=== PATIENT | female | born 1980 | race Caucasian/White ===

== ENCOUNTER → 2017-09-24 | Outpatient (CLI) | payer BC ==
[~2017-09-24] MED LIST: DOCU100C37 PO; IBUP-1780 PO; OXYC-465 PO; PREN1TAB71 PO
== END ==
LOC: RAD 10:32
PROVIDERS: ATTEND Obstetrics & Gynecology
DX: Z12.31 Encounter for screening mammogram for malignant neoplasm of breast (principal)
CPT/HCPCS: 77067

== ENCOUNTER 2020-06-04 09:08 | Outpatient (RCR) | payer BC ==
[2020-03-12 09:38] LABS: BASOPHILS % (AUTO) 1 % (0-10); EOSINOPHILS # (AUTO) 0.3 10^3/uL (0.0-0.3); EOSINOPHILS % (AUTO) 5 % (0-10); HEMATOCRIT 34 % (35-52); LYMPHOCYTES # (AUTO) 1.8 X 10^3 (1.0-4.0); LYMPHOCYTES % (AUTO) 32 % (12-44); MEAN CORPUSCULAR HEMOGLOBIN 26 PG (25-34); MEAN CORPUSCULAR HGB CONC 32 G/DL (32-36); MEAN CORPUSCULAR VOLUME 79 FL (80-99); MONOCYTES # (AUTO) 0.7 X 10^3 (0.0-1.0); MONOCYTES % (AUTO) 13 % (0-12); NEUTROPHILS # (AUTO) 2.9 X 10^3 (1.8-7.8); NEUTROPHILS % (AUTO) 50 % (42-75); PLATELET COUNT 281 10^3/uL (130-400); WHITE BLOOD COUNT 5.7 10^3/uL (4.3-11.0)
[2020-03-12 10:05] LABS: ALANINE AMINOTRANSFERASE 10 U/L (0-55); ALBUMIN 3.8 GM/DL (3.2-4.5); ALKALINE PHOSPHATASE 55 U/L (40-136); BILIRUBIN,TOTAL 0.4 MG/DL (0.1-1.0); BUN/CREATININE RATIO 14; CALCIUM 8.7 MG/DL (8.5-10.1); CARBON DIOXIDE 23 MMOL/L (21-32); CHLORIDE 108 MMOL/L (98-107); CREATININE SERUM 0.69 MG/DL (0.60-1.30); GFR ESTIMATED > 60; GLUCOSE 97 MG/DL (70-105); MAGNESIUM 1.8 MG/DL (1.6-2.4); POTASSIUM 3.8 MMOL/L (3.6-5.0); SODIUM 137 MMOL/L (135-145); TOTAL PROTEIN 6.3 GM/DL (6.4-8.2)
[2020-03-25 10:02] LABS: BASOPHILS % (AUTO) 0 % (0-10); EOSINOPHILS # (AUTO) 0.3 10^3/uL (0.0-0.3); EOSINOPHILS % (AUTO) 4 % (0-10); HEMATOCRIT 34 % (35-52); HEMOGLOBIN 11.3 G/DL (11.5-16.0); LYMPHOCYTES # (AUTO) 1.7 X 10^3 (1.0-4.0); LYMPHOCYTES % (AUTO) 28 % (12-44); MEAN CORPUSCULAR HEMOGLOBIN 26 PG (25-34); MEAN CORPUSCULAR HGB CONC 33 G/DL (32-36); MEAN CORPUSCULAR VOLUME 78 FL (80-99); MEAN PLATELET VOLUME 9.8 FL (7.4-10.4); MONOCYTES # (AUTO) 0.9 X 10^3 (0.0-1.0); MONOCYTES % (AUTO) 14 % (0-12); NEUTROPHILS # (AUTO) 3.4 X 10^3 (1.8-7.8); NEUTROPHILS % (AUTO) 54 % (42-75); PLATELET COUNT 229 10^3/uL (130-400); WHITE BLOOD COUNT 6.3 10^3/uL (4.3-11.0)
[2020-03-25 10:19] LABS: ALANINE AMINOTRANSFERASE 23 U/L (0-55); ALKALINE PHOSPHATASE 65 U/L (40-136); BILIRUBIN,TOTAL 0.4 MG/DL (0.1-1.0); BUN/CREATININE RATIO 19; CALCIUM 8.9 MG/DL (8.5-10.1); CARBON DIOXIDE 23 MMOL/L (21-32); CHLORIDE 108 MMOL/L (98-107); CREATININE SERUM 0.73 MG/DL (0.60-1.30); GFR ESTIMATED > 60; GLUCOSE 95 MG/DL (70-105); MAGNESIUM 2.2 MG/DL (1.6-2.4); POTASSIUM 3.9 MMOL/L (3.6-5.0); SODIUM 138 MMOL/L (135-145); TOTAL PROTEIN 6.7 GM/DL (6.4-8.2)
[2020-04-08 09:32] LABS: BASOPHILS % (AUTO) 1 % (0-10); EOSINOPHILS # (AUTO) 0.3 10^3/uL (0.0-0.3); EOSINOPHILS % (AUTO) 4 % (0-10); HEMATOCRIT 34 % (35-52); HEMOGLOBIN 11.2 G/DL (11.5-16.0); LYMPHOCYTES % (AUTO) 32 % (12-44); MEAN CORPUSCULAR HEMOGLOBIN 26 PG (25-34); MEAN CORPUSCULAR HGB CONC 33 G/DL (32-36); MEAN CORPUSCULAR VOLUME 79 FL (80-99); MEAN PLATELET VOLUME 10.2 FL (7.4-10.4); MONOCYTES # (AUTO) 0.6 X 10^3 (0.0-1.0); MONOCYTES % (AUTO) 10 % (0-12); NEUTROPHILS # (AUTO) 3.2 X 10^3 (1.8-7.8); NEUTROPHILS % (AUTO) 53 % (42-75); PLATELET COUNT 235 10^3/uL (130-400); WHITE BLOOD COUNT 6.1 10^3/uL (4.3-11.0)
[2020-04-08 09:56] LABS: ALANINE AMINOTRANSFERASE 49 U/L (0-55); ALKALINE PHOSPHATASE 85 U/L (40-136); BILIRUBIN,TOTAL 0.3 MG/DL (0.1-1.0); BUN/CREATININE RATIO 16; CALCIUM 9.3 MG/DL (8.5-10.1); CARBON DIOXIDE 22 MMOL/L (21-32); CHLORIDE 107 MMOL/L (98-107); CREATININE SERUM 0.75 MG/DL (0.60-1.30); GFR ESTIMATED > 60; GLUCOSE 98 MG/DL (70-105); MAGNESIUM 1.6 MG/DL (1.6-2.4); POTASSIUM 3.7 MMOL/L (3.6-5.0); SODIUM 139 MMOL/L (135-145); TOTAL PROTEIN 6.8 GM/DL (6.4-8.2)
[2020-04-22 09:22] LABS: BASOPHILS % (AUTO) 0 % (0-10); EOSINOPHILS # (AUTO) 0.2 10^3/uL (0.0-0.3); EOSINOPHILS % (AUTO) 3 % (0-10); HEMATOCRIT 33 % (35-52); HEMOGLOBIN 10.7 G/DL (11.5-16.0); LYMPHOCYTES # (AUTO) 1.8 X 10^3 (1.0-4.0); LYMPHOCYTES % (AUTO) 24 % (12-44); MEAN CORPUSCULAR HEMOGLOBIN 26 PG (25-34); MEAN CORPUSCULAR HGB CONC 32 G/DL (32-36); MEAN CORPUSCULAR VOLUME 79 FL (80-99); MEAN PLATELET VOLUME 10.2 FL (7.4-10.4); MONOCYTES % (AUTO) 14 % (0-12); NEUTROPHILS # (AUTO) 4.5 X 10^3 (1.8-7.8); NEUTROPHILS % (AUTO) 59 % (42-75); PLATELET COUNT 189 10^3/uL (130-400); WHITE BLOOD COUNT 7.6 10^3/uL (4.3-11.0)
[2020-04-22 09:46] LABS: ALANINE AMINOTRANSFERASE 58 U/L (0-55); ALBUMIN 3.9 GM/DL (3.2-4.5); ALKALINE PHOSPHATASE 87 U/L (40-136); BILIRUBIN,TOTAL 0.3 MG/DL (0.1-1.0); BUN/CREATININE RATIO 20; CALCIUM 8.9 MG/DL (8.5-10.1); CARBON DIOXIDE 20 MMOL/L (21-32); CHLORIDE 111 MMOL/L (98-107); CREATININE SERUM 0.71 MG/DL (0.60-1.30); GFR ESTIMATED > 60; GLUCOSE 91 MG/DL (70-105); MAGNESIUM 1.8 MG/DL (1.6-2.4); POTASSIUM 3.9 MMOL/L (3.6-5.0); SODIUM 139 MMOL/L (135-145); TOTAL PROTEIN 6.8 GM/DL (6.4-8.2)
[2020-05-06 10:16] LABS: BASOPHILS % (AUTO) 1 % (0-10); EOSINOPHILS # (AUTO) 0.2 10^3/uL (0.0-0.3); EOSINOPHILS % (AUTO) 3 % (0-10); HEMATOCRIT 32 % (35-52); HEMOGLOBIN 10.5 G/DL (11.5-16.0); LYMPHOCYTES # (AUTO) 1.8 X 10^3 (1.0-4.0); LYMPHOCYTES % (AUTO) 31 % (12-44); MEAN CORPUSCULAR HEMOGLOBIN 26 PG (25-34); MEAN CORPUSCULAR HGB CONC 32 G/DL (32-36); MEAN CORPUSCULAR VOLUME 80 FL (80-99); MEAN PLATELET VOLUME 9.8 FL (7.4-10.4); MONOCYTES # (AUTO) 0.9 X 10^3 (0.0-1.0); MONOCYTES % (AUTO) 15 % (0-12); NEUTROPHILS % (AUTO) 51 % (42-75); PLATELET COUNT 252 10^3/uL (130-400); WHITE BLOOD COUNT 5.8 10^3/uL (4.3-11.0)
[2020-05-06 10:48] LABS: CARBON DIOXIDE 22 MMOL/L (21-32); CHLORIDE 109 MMOL/L (98-107); POTASSIUM 4.1 MMOL/L (3.6-5.0); SODIUM 138 MMOL/L (135-145)
[2020-05-06 10:49] LABS: ALANINE AMINOTRANSFERASE 53 U/L (0-55); ALKALINE PHOSPHATASE 95 U/L (40-136); BILIRUBIN,TOTAL 0.2 MG/DL (0.1-1.0); BUN/CREATININE RATIO 16; GFR ESTIMATED > 60; GLUCOSE 90 MG/DL (70-105); MAGNESIUM 1.7 MG/DL (1.6-2.4)
[2020-05-20 09:34] LABS: BASOPHILS % (AUTO) 0 % (0-10); EOSINOPHILS # (AUTO) 0.2 10^3/uL (0.0-0.3); EOSINOPHILS % (AUTO) 4 % (0-10); HEMATOCRIT 33 % (35-52); HEMOGLOBIN 10.7 G/DL (11.5-16.0); LYMPHOCYTES # (AUTO) 1.6 X 10^3 (1.0-4.0); LYMPHOCYTES % (AUTO) 29 % (12-44); MEAN CORPUSCULAR HEMOGLOBIN 26 PG (25-34); MEAN CORPUSCULAR HGB CONC 32 G/DL (32-36); MEAN CORPUSCULAR VOLUME 80 FL (80-99); MEAN PLATELET VOLUME 10.1 FL (7.4-10.4); MONOCYTES # (AUTO) 0.7 X 10^3 (0.0-1.0); MONOCYTES % (AUTO) 12 % (0-12); NEUTROPHILS % (AUTO) 55 % (42-75); PLATELET COUNT 181 10^3/uL (130-400); WHITE BLOOD COUNT 5.4 10^3/uL (4.3-11.0)
[2020-05-20 10:00] LABS: ALANINE AMINOTRANSFERASE 75 U/L (0-55); ALBUMIN 3.9 GM/DL (3.2-4.5); ALKALINE PHOSPHATASE 164 U/L (40-136); BILIRUBIN,TOTAL 0.3 MG/DL (0.1-1.0); BUN/CREATININE RATIO 16; CARBON DIOXIDE 20 MMOL/L (21-32); CHLORIDE 109 MMOL/L (98-107); CREATININE SERUM 0.68 MG/DL (0.60-1.30); GFR ESTIMATED > 60; GLUCOSE 112 MG/DL (70-105); MAGNESIUM 1.6 MG/DL (1.6-2.4); POTASSIUM 3.9 MMOL/L (3.6-5.0); SODIUM 138 MMOL/L (135-145); TOTAL PROTEIN 6.9 GM/DL (6.4-8.2)
[~2020-06-04] VITALS: Ht 175.3 cm; Wt 86.2 kg
[~2020-06-04 09:08] MED LIST changes: +ALTEPLASE 2 MG (CATHFLO) CANCER CENTER IV ONE; +ATROPINE INJ 0.4 MG/ML SDV (CANCER CENTER) INJ SCH; +D5W 500 ML IV (CANCER CTR) 500 ML IV SCH; +FLUOROURACIL IV SCH; +FOSAPREPITANT (CANCER CENTER) 150 MG in NS (IVPB) CANCER CENTER ONLY 150 ML IV SCH; +IRINOTECAN HCL 300 MG in D5W 250 ML IVPB (CANCER CTR) 250 ML IV SCH; +LEUCOVORIN CALCIUM 500 MG, LEUCOVORIN CALCIUM 200 MG, LEUCOVORIN CALCIUM 100 MG in D5W ... IV SCH; +LORazepam INJ 2 MG/ML VIAL CANCER CTR IV SCH; +LUSPATERCEPT AAMT SQ SCH; +MAGNESIUM SULFATE (CANCER CTR) 2 GM in NS (IVPB) CANCER CENTER 100 ML IV ONE; +NS IV SCH; +OXALIPLATIN 170 MG in D5W 250 ML IVPB (CANCER CTR) 250 ML IV SCH; -OXYC-465 PO; +OXYC-556 PO
[2020-06-04 09:24] LABS: BASOPHILS % (AUTO) 0 % (0-10); EOSINOPHILS # (AUTO) 0.1 10^3/uL (0.0-0.3); EOSINOPHILS % (AUTO) 3 % (0-10); HEMATOCRIT 35 % (35-52); LYMPHOCYTES # (AUTO) 1.5 X 10^3 (1.0-4.0); LYMPHOCYTES % (AUTO) 32 % (12-44); MEAN CORPUSCULAR HEMOGLOBIN 26 PG (25-34); MEAN CORPUSCULAR HGB CONC 32 G/DL (32-36); MEAN CORPUSCULAR VOLUME 81 FL (80-99); MEAN PLATELET VOLUME 10.2 FL (7.4-10.4); MONOCYTES # (AUTO) 0.6 X 10^3 (0.0-1.0); MONOCYTES % (AUTO) 13 % (0-12); NEUTROPHILS # (AUTO) 2.4 X 10^3 (1.8-7.8); NEUTROPHILS % (AUTO) 51 % (42-75); PLATELET COUNT 194 10^3/uL (130-400); WHITE BLOOD COUNT 4.7 10^3/uL (4.3-11.0)
[2020-06-04 09:44] LABS: ALANINE AMINOTRANSFERASE 111 U/L (0-55); ALBUMIN 4.1 GM/DL (3.2-4.5); ALKALINE PHOSPHATASE 191 U/L (40-136); BILIRUBIN,TOTAL 0.3 MG/DL (0.1-1.0); BUN/CREATININE RATIO 16; CALCIUM 9.3 MG/DL (8.5-10.1); CARBON DIOXIDE 24 MMOL/L (21-32); CHLORIDE 107 MMOL/L (98-107); CREATININE SERUM 0.77 MG/DL (0.60-1.30); GFR ESTIMATED > 60; GLUCOSE 115 MG/DL (70-105); MAGNESIUM 1.6 MG/DL (1.6-2.4); SODIUM 140 MMOL/L (135-145)
== END 2020-06-09 | disposition home or self-care (01) ==
LOC: ONC 09:08
PROVIDERS: ATTEND Internal Medicine Hematology & Oncology
DX: Z51.11 Encounter for antineoplastic chemotherapy (principal); C20 Malignant neoplasm of rectum
CPT/HCPCS: 36591; 36593; 80053; 82378; 83735; 85025; 96367; 96368; 96375; 96411; 96413; 96416; 96417; 99214

== ENCOUNTER 2020-08-09 08:24 | Outpatient (RCR) | payer BC ==
[2020-07-15 08:45] LABS: BASOPHILS % (AUTO) 1 % (0-10); EOSINOPHILS # (AUTO) 0.2 10^3/uL (0.0-0.3); EOSINOPHILS % (AUTO) 5 % (0-10); HEMATOCRIT 36 % (35-52); HEMOGLOBIN 11.7 g/dL (11.5-16.0); LYMPHOCYTES # (AUTO) 0.8 10^3/uL (1.0-4.0); LYMPHOCYTES % (AUTO) 21 % (12-44); MEAN CORPUSCULAR HEMOGLOBIN 28 pg (25-34); MEAN CORPUSCULAR HGB CONC 33 g/dL (32-36); MEAN CORPUSCULAR VOLUME 84 fL (80-99); MEAN PLATELET VOLUME 10.1 fL (9.0-12.2); MONOCYTES # (AUTO) 0.4 10^3/uL (0.0-1.0); MONOCYTES % (AUTO) 9 % (0-12); NEUTROPHILS # (AUTO) 2.5 10^3/uL (1.8-7.8); NEUTROPHILS % (AUTO) 64 % (42-75); PLATELET COUNT 169 10^3/uL (130-400); WHITE BLOOD COUNT 3.9 10^3/uL (4.3-11.0)
[2020-07-15 09:03] LABS: BUN/CREATININE RATIO 14; CALCIUM 9.1 MG/DL (8.5-10.1); CARBON DIOXIDE 20 MMOL/L (21-32); CHLORIDE 109 MMOL/L (98-107); CREATININE SERUM 0.73 MG/DL (0.60-1.30); GFR ESTIMATED > 60; GLUCOSE 92 MG/DL (70-105); POTASSIUM 3.9 MMOL/L (3.6-5.0); SODIUM 139 MMOL/L (135-145)
[2020-07-22 11:01] LABS: BASOPHILS % (AUTO) 0 % (0-10); EOSINOPHILS # (AUTO) 0.2 10^3/uL (0.0-0.3); EOSINOPHILS % (AUTO) 4 % (0-10); HEMATOCRIT 36 % (35-52); HEMOGLOBIN 11.7 g/dL (11.5-16.0); LYMPHOCYTES # (AUTO) 0.6 10^3/uL (1.0-4.0); LYMPHOCYTES % (AUTO) 15 % (12-44); MEAN CORPUSCULAR HEMOGLOBIN 28 pg (25-34); MEAN CORPUSCULAR HGB CONC 33 g/dL (32-36); MEAN CORPUSCULAR VOLUME 85 fL (80-99); MEAN PLATELET VOLUME 9.3 fL (9.0-12.2); MONOCYTES # (AUTO) 0.4 10^3/uL (0.0-1.0); MONOCYTES % (AUTO) 9 % (0-12); NEUTROPHILS # (AUTO) 2.9 10^3/uL (1.8-7.8); NEUTROPHILS % (AUTO) 71 % (42-75); PLATELET COUNT 161 10^3/uL (130-400)
[2020-07-22 11:21] LABS: ALANINE AMINOTRANSFERASE 26 U/L (0-55); ALBUMIN 4.4 GM/DL (3.2-4.5); ALKALINE PHOSPHATASE 109 U/L (40-136); BILIRUBIN,TOTAL 0.4 MG/DL (0.1-1.0); BUN/CREATININE RATIO 18; CALCIUM 8.9 MG/DL (8.5-10.1); CARBON DIOXIDE 23 MMOL/L (21-32); CHLORIDE 108 MMOL/L (98-107); CREATININE SERUM 0.72 MG/DL (0.60-1.30); GFR ESTIMATED > 60; GLUCOSE 95 MG/DL (70-105); MAGNESIUM 1.8 MG/DL (1.6-2.4); SODIUM 139 MMOL/L (135-145); TOTAL PROTEIN 7.3 GM/DL (6.4-8.2)
[2020-07-29 08:54] LABS: BASOPHILS % (AUTO) 1 % (0-10); EOSINOPHILS # (AUTO) 0.2 10^3/uL (0.0-0.3); EOSINOPHILS % (AUTO) 5 % (0-10); HEMATOCRIT 35 % (35-52); HEMOGLOBIN 11.5 g/dL (11.5-16.0); LYMPHOCYTES # (AUTO) 0.5 10^3/uL (1.0-4.0); LYMPHOCYTES % (AUTO) 12 % (12-44); MEAN CORPUSCULAR HEMOGLOBIN 28 pg (25-34); MEAN CORPUSCULAR HGB CONC 33 g/dL (32-36); MEAN CORPUSCULAR VOLUME 86 fL (80-99); MONOCYTES # (AUTO) 0.4 10^3/uL (0.0-1.0); MONOCYTES % (AUTO) 10 % (0-12); NEUTROPHILS # (AUTO) 2.8 10^3/uL (1.8-7.8); NEUTROPHILS % (AUTO) 72 % (42-75); PLATELET COUNT 169 10^3/uL (130-400); WHITE BLOOD COUNT 3.9 10^3/uL (4.3-11.0)
[2020-07-29 09:12] LABS: BUN/CREATININE RATIO 18; CARBON DIOXIDE 21 MMOL/L (21-32); CHLORIDE 108 MMOL/L (98-107); CREATININE SERUM 0.74 MG/DL (0.60-1.30); GFR ESTIMATED > 60; GLUCOSE 94 MG/DL (70-105); POTASSIUM 4.1 MMOL/L (3.6-5.0); SODIUM 138 MMOL/L (135-145)
[2020-08-06 10:23] LABS: BASOPHILS % (AUTO) 1 % (0-10); EOSINOPHILS # (AUTO) 0.2 10^3/uL (0.0-0.3); EOSINOPHILS % (AUTO) 4 % (0-10); HEMATOCRIT 35 % (35-52); HEMOGLOBIN 11.7 g/dL (11.5-16.0); LYMPHOCYTES # (AUTO) 0.5 10^3/uL (1.0-4.0); LYMPHOCYTES % (AUTO) 9 % (12-44); MEAN CORPUSCULAR HEMOGLOBIN 29 pg (25-34); MEAN CORPUSCULAR HGB CONC 33 g/dL (32-36); MEAN CORPUSCULAR VOLUME 87 fL (80-99); MEAN PLATELET VOLUME 8.9 fL (9.0-12.2); MONOCYTES # (AUTO) 0.4 10^3/uL (0.0-1.0); MONOCYTES % (AUTO) 9 % (0-12); NEUTROPHILS % (AUTO) 77 % (42-75); PLATELET COUNT 194 10^3/uL (130-400); WHITE BLOOD COUNT 5.2 10^3/uL (4.3-11.0)
[2020-08-06 10:39] LABS: ALANINE AMINOTRANSFERASE 45 U/L (0-55); ALBUMIN 4.3 GM/DL (3.2-4.5); ALKALINE PHOSPHATASE 88 U/L (40-136); BILIRUBIN,TOTAL 0.5 MG/DL (0.1-1.0); BUN/CREATININE RATIO 14; CALCIUM 9.1 MG/DL (8.5-10.1); CARBON DIOXIDE 24 MMOL/L (21-32); CHLORIDE 106 MMOL/L (98-107); CREATININE SERUM 0.78 MG/DL (0.60-1.30); GFR ESTIMATED > 60; GLUCOSE 103 MG/DL (70-105); MAGNESIUM 1.8 MG/DL (1.6-2.4); POTASSIUM 3.8 MMOL/L (3.6-5.0); SODIUM 138 MMOL/L (135-145); TOTAL PROTEIN 7.2 GM/DL (6.4-8.2)
[~2020-08-09 08:24] MED LIST changes: -ALTEPLASE 2 MG (CATHFLO) CANCER CENTER IV ONE; -ATROPINE INJ 0.4 MG/ML SDV (CANCER CENTER) INJ SCH; -D5W 500 ML IV (CANCER CTR) 500 ML IV SCH; -FLUOROURACIL IV SCH; -FOSAPREPITANT (CANCER CENTER) 150 MG in NS (IVPB) CANCER CENTER ONLY 150 ML IV SCH; -IRINOTECAN HCL 300 MG in D5W 250 ML IVPB (CANCER CTR) 250 ML IV SCH; -LEUCOVORIN CALCIUM 500 MG, LEUCOVORIN CALCIUM 200 MG, LEUCOVORIN CALCIUM 100 MG in D5W ... IV SCH; -LORazepam INJ 2 MG/ML VIAL CANCER CTR IV SCH; -LUSPATERCEPT AAMT SQ SCH; -MAGNESIUM SULFATE (CANCER CTR) 2 GM in NS (IVPB) CANCER CENTER 100 ML IV ONE; -NS IV SCH; -OXALIPLATIN 170 MG in D5W 250 ML IVPB (CANCER CTR) 250 ML IV SCH
== END 2020-09-09 | disposition home or self-care (01) ==
LOC: ONC 08:24
PROVIDERS: ATTEND Internal Medicine Hematology & Oncology
DX: Z51.11 Encounter for antineoplastic chemotherapy (principal); C20 Malignant neoplasm of rectum; R74.8 Abnormal levels of other serum enzymes
CPT/HCPCS: 77290; 77300; 77301; 77307; 77334; 77336; 77338; 77386; 77417; 77470; 80048; 80053; 83735; 85025; 99204; 99213; 99214

== ENCOUNTER 2020-11-19 10:06 | Outpatient (RCR) | payer BC | END 2021-02-17 | disposition home or self-care (01) | LOC: ONC 10:06 | PROVIDERS: ATTEND Internal Medicine Hematology & Oncology | DX: C20 Malignant neoplasm of rectum (principal); Z92.21 Personal history of antineoplastic chemotherapy; Z92.3 Personal history of irradiation; Z98.890 Other specified postprocedural states | CPT/HCPCS: 99213 ==

== ENCOUNTER 2022-12-15 05:29 | Outpatient (CLI) | payer BC ==
[~2022-12-15] VITALS: Ht 175.3 cm; Wt 89.5 kg
[2022-12-15] MEDS ORDERED: MULT-1136 PO (12:24)
[2022-12-15] MEDS ORDERED: MEDR2.5T6 PO (12:24)
[2022-12-15] MEDS ORDERED: ESTR1TAB24 PO (12:24)
[2022-12-15] MEDS ORDERED: ATOR10TA66 PO (12:24)
== END 2022-12-15 12:26 | disposition home or self-care (01) ==
LOC: PREOP 05:29
PROVIDERS: ATTEND Obstetrics & Gynecology
DX: Z01.818 Encounter for other preprocedural examination (principal)

== ENCOUNTER 2022-12-22 09:45 | Day surgery (SDC) | payer BC ==
[2022-12-22] VITALS (10 sets, daily range): BP systolic 95–139; BP diastolic 54–94
[~2022-12-22] VITALS: Ht 175 cm; Wt 89.5 kg
[~2022-12-22 09:45] MED LIST changes: +ATOR10TA66 PO; +ESTR1TAB24 PO; +MEDR2.5T6 PO; +MULT-1136 PO
[2022-12-22] MEDS ORDERED: metroNIDAZOLE 500MG/100ML IVPB 100 ML IV ONE (10:15)
[2022-12-22] MEDS ORDERED: ceFAZolin INJECTION 2,000 MG in NS (IVPB) 50 ML IV ONE (10:15)
[2022-12-22] MEDS: LACTATED RINGERS 1,000 ML IV PRN ×3 (10:15→13:20)
[2022-12-22] MEDS ORDERED: BUPIVACAINE 0.25% 30 ML (SENSORCAINE) VIAL ONE (10:20)
--- NOTE | 2022-12-22 10:22 | Progress Note-Pre Operative ---
Pre-Operative Progress Note Date of Available H&P: Dec 22, 2022 Date H&P Reviewed: Dec 22, 2022 Time H&P Reviewed: 10:10 History & Physical: H&P Reviewed, Patient Examed, No changes noted Pre-Operative Diagnosis: KIRSTEN GOLDEN DO Dec 22, 2022 10:22
--- NOTE | 2022-12-22 10:25 | Discharge Inst-Women's Service ---
Discharge Inst-Women's Serv Depart Medication/Instructions New, Converted or Re-Newed RX: Transmitted to Pharmacy Problems Reviewed?: Yes Consults/Follow Up Additional Follow Up: Yes Orders/Referrals Dr. Gonzalez in 7-10 days and in 8 weeks Activity Activity: Activity as Tolerated Driving Instructions: No Driving for 1 Week NO SMOKING: NO SMOKING Nothing Inside Vagina: No Douching, No [place], No Tampons Diet Discharge Diet: No Restrictions Symptoms to Report to : Bleeding Excessive, Pain Increased, Fever Over 101 Degrees F, Vaginal Bleeding Increase, Questions/Concerns For Any Problems or Questions: Contact Your Physician Skin/Wound Care Infection Signs and Symptoms: Increased Redness, Foul Odor of Wound, Increased Drainage, Skin Itchy or Has a Rash, Increased Swelling, Temperature Above 101 F Operative Area Clean and Dry: Keep Incision Clean/Dry Stitches/Ernestine/Dermabond: Dermabond, Care of Stitches Bathing Instructions: KIRSTEN Cruz DO Dec 22, 2022 10:25
[2022-12-22] MEDS ORDERED: IBUP-844 PO (10:26)
[2022-12-22] MEDS ORDERED: SIME80TA16 PO (10:26)
[2022-12-22] MEDS ORDERED: HYDR-34 PO (10:26)
[2022-12-22] MEDS ORDERED: DOCU100C37 PO (10:26)
[2022-12-22] MEDS ORDERED: ANTACID SUSP 30 ML UDC (MYLANTA) PO PRN (10:30)
[2022-12-22] MEDS ORDERED: ONDANSETRON 4 MG/2 ML (SDV) Z0FRAN IV PRN (10:30)
[2022-12-22] MEDS ORDERED: BENZOCAINE LOZENGES 1 EACH LOZENGE MM PRN (10:30)
[2022-12-22] MEDS ORDERED: IBUPROFEN 600 MG (MOTRIN) TAB PO PRN (10:30)
[2022-12-22] MEDS ORDERED: LACTATED RINGERS 1,000 ML IV SCH (10:30)
[2022-12-22] MEDS ORDERED: DOCUSATE SODIUM 100 MG (COLACE) CAP PO PRN (10:30)
[2022-12-22] MEDS ORDERED: ZOLPIDEM 5 MG (AMBIEN) TAB PO PRN (10:30)
[2022-12-22] MEDS ORDERED: SIMETHICONE 80 MG (MYLICON) CHEW PO PRN (10:30)
[2022-12-22] MEDS ORDERED: HYDROcodone/APAP 7.5 MG/325 MG (LORTAB, LORCET PLUS) TABLET PO PRN (10:30)
[2022-12-22] MEDS ORDERED: KETOROLAC 30 MG/ML VIAL IVP PRN (10:30)
[2022-12-22] MEDS ORDERED: MIDAZOLAM 2 MG/2 ML (VERSED) VIAL ONE (10:40)
[2022-12-22] MEDS ORDERED: ROCURONIUM 50 MG/5 ML (ZEMURON) VIAL IV ONE (10:40)
[2022-12-22] MEDS ORDERED: fentaNYL INJ 100 MCG/2 ML AMP ONE (10:40)
[2022-12-22] MEDS ORDERED: proPOfol 200 MG/20 ML (DIPRIVAN) VIAL IV ONE (10:40)
[2022-12-22] MEDS ORDERED: LIDOCAINE PF 2% 5 ML (XYLOCAINE) VIAL ONE (10:40)
[2022-12-22] MEDS ORDERED: ONDANSETRON 4 MG/2 ML (SDV) Z0FRAN ONE (10:40)
[2022-12-22] MEDS ORDERED: KETOROLAC 30 MG/ML VIAL ONE (10:40)
[2022-12-22 10:43] LABS: BASOPHILS % (AUTO) 1 % (0-10); EOSINOPHILS # (AUTO) 0.1 10^3/uL (0.0-0.3); EOSINOPHILS % (AUTO) 2 % (0-10); HEMATOCRIT 41 % (35-52); HEMOGLOBIN 13.8 g/dL (11.5-16.0); LYMPHOCYTES # (AUTO) 1.5 10^3/uL (1.0-4.0); LYMPHOCYTES % (AUTO) 26 % (12-44); MEAN CORPUSCULAR HEMOGLOBIN 29 pg (25-34); MEAN CORPUSCULAR HGB CONC 34 g/dL (32-36); MEAN CORPUSCULAR VOLUME 85 fL (80-99); MEAN PLATELET VOLUME 10.5 fL (9.0-12.2); MONOCYTES # (AUTO) 0.4 10^3/uL (0.0-1.0); MONOCYTES % (AUTO) 6 % (0-12); NEUTROPHILS % (AUTO) 66 % (42-75); PLATELET COUNT 249 10^3/uL (130-400)
[2022-12-22 11:19] LABS: ALBUMIN 4.3 GM/DL (3.2-4.5); BILIRUBIN,TOTAL 0.9 MG/DL (0.1-1.0); CALCIUM 9.3 MG/DL (8.5-10.1); CREATININE SERUM 0.8 MG/DL (0.60-1.30); POTASSIUM 3.8 MMOL/L (3.6-5.0); TOTAL PROTEIN 7.1 GM/DL (6.4-8.2)
[2022-12-22] MEDS ORDERED: BUPIVACAINE 0.25% 30 ML (SENSORCAINE) VIAL INJ ONE (11:46)
[2022-12-22] MEDS ORDERED: NEOSTIGMINE (BLOXIVERZ ) 1 MG/1ML 10 ML VIAL ONE (12:22)
[2022-12-22] MEDS ORDERED: GLYCOPYRROLATE 0.2 MG/ML (ROBINUL) 2 ML VIAL ONE (12:22)
[2022-12-22] MEDS ORDERED: PROMETHAZINE INJ 25 MG/ML (PHENERGAN) AMP IVP ONE (13:00)
[2022-12-22] MEDS ORDERED: HYDROmorphone 2 MG/ML VIAL (DILAUDID) IV ONE (13:00)
[2022-12-22] MEDS ORDERED: ONDANSETRON 4 MG/2 ML (SDV) Z0FRAN IVP PRN (13:00)
[2022-12-22] MEDS ORDERED: morphine INJ 10 MG/ML 1ML (SYR OR VIAL) IVP ONE (13:00)
--- NOTE | 2022-12-22 19:43 | OPERATIVE REPORT ---
DATE OF SERVICE: 12/22/2022 PREOPERATIVE DIAGNOSES: 1. A 42-year-old female with postmenopausal bleeding. 2. Menorrhagia. POSTOPERATIVE DIAGNOSES: 1. A 42-year-old female with postmenopausal bleeding. 2. Menorrhagia. PROCEDURE: Robotic-assisted total laparoscopic hysterectomy, bilateral salpingo-oophorectomy. SURGEON: Coy Gonzalez DO CAN VACUUM TESTER: Mayra Pfeiffer DNP, was necessary for manipulation and retraction throughout the procedure. ANESTHESIA: General endotracheal. ESTIMATED BLOOD LOSS: Minimal. URINE OUTPUT: 150 mL clear, but concentrated at the end of the procedure. FLUIDS: 1800 mL lactated Ringer's solution. FINDINGS: Atrophic-appearing uterus, atrophied bilateral ovaries. Scar tissue in the pelvis consistent with radiation therapy, atrophy of the vaginal opening consistent with history of radiation therapy. SPECIMEN SENT: Uterus, bilateral fallopian tubes and ovaries. INDICATIONS FOR PROCEDURE: This 42-year-old female is a patient who had sought care with Dr Thompson, undergone more conservative management. Treatment options for postmenopausal bleeding in the past, underwent D and C and evaluation via imaging. All of these things did not improve her status. She wished to proceed with hysterectomy given her history of cancer and radiation. She had concerns with long-term uterine cancer, ovarian cancer, given her history. Risk of the procedure discussed with the patient preoperatively in detail including risk of bleeding, infection, damage to surrounding structures including but not limited to bowel, bladder, ureter, kidneys, possible need for reoperation, postoperative complications that may occur, recovery timeframe risk from anesthesia and even . After everything was discussed with the patient in detail, consent was obtained, the patient was taken to the operating room. OPERATIVE DESCRIPTION IN DETAIL: Once in the operating room, general anesthesia was found to be adequate. She was placed in dorsal lithotomy position, prepped and draped in normal sterile fashion. A timeout was performed. Boykin catheter was placed. A weighted speculum inserted to the patient's vagina. Right angle retractor was used to visualize the cervix, which an 0 Vicryl suture was then placed to anterior lip of the cervix and used as retraction on the cervix. I then gently sound the uterine cavity, depth was found to be 8 cm. I selected an 8 cm GINETTE uterine manipulator and a 3 cm colpotomy ring. The manipulator was advanced into the uterus where the balloon is deployed. The colpotomy ring was advanced around the vaginal fornix. I then removed all the instruments from the patient's vagina, performed change of gloves. I turned my attention to the abdomen where subcostally at the midclavicular line, I introduced a Veress needle through the skin until intraperitoneal placement was confirmed using saline drop test. An opening pressure of 4 mmHg was noted. I proceeded to max pressure using CO2 insufflation of 15 mmHg, at which point I make a supraumbilical 8 mm incision with a knife and directed a blunt laparoscopic da Rena camera trocar through the incision until intraperitoneal placement confirmed using da Rena laparoscope. There was no evidence of damage from entry site. A brief scan of the upper abdominal anatomy appears to be grossly normal. There is no evidence of damage from the Veress entry site and the Veress was removed at that point. I then placed the patient in steep Trendelenburg where I am able to visualize all my pelvic anatomy as defined in my findings above. I placed 2 lateral trocars. They are both 8 mm trocars approximately 8 cm lateral to my infraumbilical trocar. Once both of these were in place, I bring in da Rena robot and docked in appropriate fashion. Using the SynchroSeal device on the left hand and monopolar evelyn in the right hand, I performed the following dissection bilaterally at the da Rena operative console. Starting at the infundibulopelvic ligament, I sealed and transected this using the SynchroSeal device and then grasped the round ligament, which I sealed and transected using the SynchroSeal device and then grasped the entire broad ligament, which I sealed and transected using the SynchroSeal device. I do this down to the level of the lower uterine segment, at which point I the anterior and posterior leaflets of the broad ligament. The anterior leaflet was taken around the anterior vaginal fornix. The posterior leaflet dissection was taken around the posterior vaginal fornix. This allows me to skeletonize the uterine vessels laterally, which I sealed and transected using the SynchroSeal device. I then create a colpotomy at 12 o'clock position using monopolar evelyn and took this circumferentially around the vaginal fornix amputating the cervix away from the vagina. The entire specimen was removed through the vagina. I then closed the vaginal cuff using 2-0 V-Loc in a running fashion. There was no active bleeding noted from any of my dissection planes. I then undocked da Rena robot and proceeded with remainder of the case laparoscopically. I then copiously irrigated the pelvis using normal saline. Once again, there was no active bleeding noted from any of my dissection planes. I placed FloSeal hemostatic agent over all my planes of dissection. I had the patient taken out of steep Trendelenburg where I removed the lateral trocars under direct visualization of laparoscope. The infraumbilical trocars left in place to release the remainder of insufflation and to introduce 10 mL of 0.25% Marcaine into the peritoneal cavity for postoperative pain management. I then removed this trocar as well. The skin reapproximated using 4-0 Monocryl and interrupted subcuticular stitches. Dermabond was applied to incision and Band-Aids were placed over these as well. The patient tolerated the procedure well and was taken to recovery area in stable condition. Lap and sponge counts were correct at the end of the procedure. Instrument counts correct as well. Two grams of Ancef, 500 mg of Flagyl were given preoperatively for infection prophylaxis. Job ID: [id number] DocumentID: [id number] Dictated Date: 12/22/2022 12:34:07 Law Office Assistant Date: 12/22/2022 19:41:00 Dictated By: DO ENRIQUETA CAO
--- NOTE | 2022-12-23 07:58 | Anesthesia-General Post-Op ---
General Patient Condition Mental Status/LOC: Same as Preop Cardiovascular: Satisfactory Nausea/Vomiting: Absent Respiratory: Satisfactory Pain: Controlled Complications: Absent Post Op Complications Complications None Follow Up Care/Instructions Patient Instructions None needed. Anesthesia/Patient Condition Patient Condition Patient is doing well, no complaints, stable vital signs, no apparent adverse anesthesia problems. No complications reported per nursing. D/C home per [facility] [place] Criteria: Yes DISHA MENDEZ CRNA Dec 23, 2022 07:58
== END 2022-12-22 17:45 | disposition home or self-care (01) ==
LOC: SDC 09:45 → WS 13:11 → SDC 17:45
PROVIDERS: ATTEND Obstetrics & Gynecology
DX: D25.1 Intramural leiomyoma of uterus (principal); N80.00 Endometriosis of the uterus, unspecified; N80.03 Adenomyosis of the uterus; N94.89 Other specified conditions associated with female genital organs and menstrual cycle; N95.0 Postmenopausal bleeding; L90.5 Scar conditions and fibrosis of skin; Z92.3 Personal history of irradiation
CPT/HCPCS: 36415; 80053; 84703; 85025; 86850; 86900; 86901; 87081